=== PATIENT | female | born 1980 | race Caucasian/White ===

== ENCOUNTER 2016-11-06 23:57 | Emergency (ER) | payer OTHER ==
--- NOTE | ~2016-11-06 | CR281 ---
[facility] A Service of [facility] RADIOLOGY TEXT RESULTS PATIENT: CORINA UNGER LOCATION: [facility] : 78 UNIT #: [id number] AGE: [address]: Cole Bae MD SEX: F ORDER DR: [id number] [facility] [address] [place], [place] [address] [id number] MR#: [id number] Acc #: [id number] NAME: CORINA UNGER : 1980 SEX: F STUDY DATE/TIME: 11/07/2016 0:15 UNIT: [facility] ROOM: STUDY DESCRIPTION: CR Wrist Min 3 View Lt Attending Physician: Cole Bae M.D. Ordering Physician: Coleman Cheng M.D. Primary Care Physician: No Primary Care Physician MEDICAL IMAGING REPORT This report is preliminary unless electronic signature is present EXAM Left wrist INDICATIONS Needle broke in wrist, and there may be a foreign body left wrist. The happened a day ago. FINDINGS Three-views left wrist were obtained. No fracture or foreign body identified. Bones are normal. IMPRESSION Normal left wrist. There is no metal foreign body visible. Dictated by... Alexi Malhotra M.D. THIS IS AN ELECTRONICALLY VERIFIED REPORT Alexi Malhotra M.D. at 11/07/2016 8:21 PM AISHA/zohaib TD: 11/07/2016 14:53 JOB #: [id number] MEDICAL IMAGING REPORT Page 1 of 1 COPY
[~2016-11-06 23:57] MED LIST: ELIMITE60 G1 TOP; FLEXERIL PO; KETOPROFEN PO; NO MEDICATIONS
== END 2016-11-07 01:27 | disposition home or self-care (01) ==
LOC: CED 23:57
DX: S61.531A Puncture wound without foreign body of right wrist, initial encounter (principal); F19.10 Other psychoactive substance abuse, uncomplicated; W26.8XXA Contact with other sharp object(s), not elsewhere classified, initial encounter; Y92.009 Unspecified place in unspecified non-institutional (private) residence as the place of occurrence of the external cause
CPT/HCPCS: 73110; 99283